=== PATIENT | male | born 1985 | race Caucasian/White ===

== ENCOUNTER 2023-12-11 18:07 | Emergency (ER) | payer SELFPAY ==
[~2023-12-11] VITALS: Ht 188 cm; Wt 97.1 kg
[2023-12-11 18:35] VITALS: BP 171/109; PULSE 125; RESP 18; TEMP 98.3; O2SAT 96
[2023-12-11] MEDS: IBUPROFEN 600 MG TAB PO ONE (19:52)
[2023-12-11] MEDS: amLODIPine 5 MG TAB PO ONE (19:52)
[2023-12-11 19:53] VITALS: BP 158/94; PULSE 112; RESP 18; TEMP 98.3
--- NOTE | 2023-12-11 19:53 | NUR ---
PATIENT BIB [facility] POLICE DEPT. PATIENT EXAMINED BY DR. claire. PATIENT MEDICALLY CLEARED AND RELEASED IN CUSTODY IN STABLE CONDITION. ORIGINAL PRE-BOOK FORM GIVEN TO OFFICER jordan [id number].
[2023-12-11 19:54] VITALS: O2SAT 97
== END 2023-12-11 19:53 ==
LOC: MED 18:07
DX: E11.65 Type 2 diabetes mellitus with hyperglycemia (principal); I10 Essential (primary) hypertension; M54.50 Low back pain, unspecified; E78.5 Hyperlipidemia, unspecified
CPT/HCPCS: 82948; 99283